=== PATIENT | male | born 1965 | race Caucasian/White ===

== ENCOUNTER 2017-08-07 19:12 | Inpatient (IN) | payer OTHER ==
[~2017-08-07] VITALS: Ht 167.6 cm; Wt 72.6 kg
[2017-08-07] VITALS (9 sets, daily range): BP systolic 144–181
[2017-08-07] MEDS ORDERED: MULT-1117 NG (21:04)
[2017-08-07] MEDS ORDERED: NICO1PAT25 TD (21:04)
[2017-08-07] MEDS ORDERED: ROCPM1 IV (21:04)
[2017-08-07] MEDS ORDERED: SIMV40TA2 NG (21:04)
[2017-08-07] MEDS ORDERED: QUET25TA34 NG (21:04)
[2017-08-07] MEDS ORDERED: ACET200V11 IV (21:04)
[2017-08-07] MEDS ORDERED: ALPR0.5T8 NG (21:04)
[2017-08-07] MEDS ORDERED: FOLI-43 PO (21:04)
[2017-08-07] MEDS ORDERED: ALBU2.5V7 INH (21:04)
[2017-08-07] MEDS ORDERED: THIA100T13 NG (21:04)
[2017-08-07] MEDS ORDERED: GLIP5TAB13 NG (21:04)
[2017-08-07] MEDS ORDERED: FAMO20TA98 PO (21:04)
[2017-08-07] MEDS ORDERED: NPH,100V SUBCUT (21:04)
[2017-08-07] MEDS ORDERED: TAMS-11 NG (21:04)
[2017-08-07] MEDS ORDERED: IPRA0.2S6 INH (21:04)
[2017-08-07] MEDS ORDERED: LOP600 PO (21:04)
[2017-08-07] MEDS ORDERED: SCOP1PAT TD (21:04)
[2017-08-07] MEDS ORDERED: ATEN-166 NG (21:04)
[2017-08-07] MEDS ORDERED: ALBUTEROL SULFATE 0.083% 2.5 MG/3 ML VIAL.NEB INH PRN (21:45)
[2017-08-07] MEDS ORDERED: IPRATROPIUM BROM 0.5 MG/2.5 ML VIAL.NEB (ATROVENT) INH PRN ×2 (21:45→22:45)
[2017-08-07] MEDS: ALPRAZolam 0.25 MG TABLET PO SCH (22:14)
[2017-08-07] MEDS ORDERED: ALBUTEROL SULFATE 0.083% 2.5 MG/3 ML VIAL.NEB INH SCH (22:45)
[2017-08-07] MEDS ORDERED: ACETYLCYSTEINE IV 6000 MG/30 ML VIAL IV SCH (22:45)
[2017-08-07] MEDS: TAMSULOSIN HCL 0.4 MG CAP NG SCH (22:45)
[2017-08-07] MEDS ORDERED: cefTRIAXone 1 GM IVPB PREMIX 50 ML IV SCH (23:00)
[2017-08-07] MEDS ORDERED: DEXTROSE 50% JECT 50 ML DISP.SYRIN IVP PRN (23:00)
[2017-08-07] MEDS ORDERED: cloNIDine HCL 0.2 MG TABLET PO PRN (23:15)
[2017-08-07] MEDS ORDERED: cefTRIAXone 1 GM IVPB PREMIX 100 ML IV ONE (23:22)
[2017-08-07] MEDS ORDERED: ACETAMINOPHEN 650 MG/20.3 ML UDC GT PRN (23:30)
[2017-08-07] MEDS: LORazepam 2 MG/ML VIAL IVP PRN (23:43)
[2017-08-08] VITALS (25 sets, daily range): BP systolic 126–170
[2017-08-08] MEDS: LORazepam 2 MG/ML VIAL IVP PRN ×2 (03:58→08:28)
[2017-08-08] MEDS: INSULIN REGULAR, HUMAN 100 UNITS/ML, 10 ML VIAL (novoLIN R) SUBCUT PRN ×3 (04:06→22:43)
[2017-08-08 05:47] LABS: BASOPHILS # (AUTO) 0.1 K/uL (0.0-0.2); BASOPHILS % (AUTO) 0.6 % (0.0-2.0); EOSINOPHILS # (AUTO) 0.4 K/uL (0.0-0.4); EOSINOPHILS % (AUTO) 2.5 % (0.0-4.0); HEMOGLOBIN 11.5 g/dL (14.0-18.0); LYMPHOCYTES # (AUTO) 2.8 K/uL (1.0-5.5); LYMPHOCYTES % (AUTO) 18.6 % (20.5-51.5); MEAN CORPUSCULAR HEMOGLOBIN 30 pg (27-31); MEAN CORPUSCULAR HGB CONC 33 % (32-36); MEAN CORPUSCULAR VOLUME 92 fL (79.0-98.0); MONOCYTES % (AUTO) 6.7 % (1.7-9.3); PLATELET COUNT (AUTO) 652 K/uL (130-430); RED BLOOD CELL COUNT(AUTO) 3.79 MIL/uL (4.2-6.2); RED CELL DISTRIBUTION WIDTH 12.4 % (9.0-15.0); WHITE BLOOD COUNT (AUTO) 15.3 K/uL (4.8-10.8)
[2017-08-08 06:24] LABS: ALBUMIN 2.8 g/dL (3.4-4.8); CALCIUM 9.5 mg/dL (8.4-11.0); CREATININE 0.72 mg/dL (0.55-1.30); POTASSIUM 3.3 mmol/L (3.5-5.1); THYROID STIMULATING HORMONE 1.42 uIu/mL (0.34-4.82); TOTAL BILIRUBIN 0.2 mg/dL (0.0-1.0)
[2017-08-08] MEDS: SIMVASTATIN 40 MG TABLET NG SCH (08:25)
[2017-08-08] MEDS: IPRATROPIUM BROM 0.5 MG/2.5 ML VIAL.NEB (ATROVENT) INH SCH ×3 (08:25→19:46)
[2017-08-08] MEDS: THIAMINE HCL 100 MG TABLET NG SCH (08:25)
[2017-08-08] MEDS: ALBUTEROL SULFATE 0.083% 2.5 MG/3 ML VIAL.NEB INH SCH ×4 (08:25→19:46)
[2017-08-08] MEDS: MULTIVITAMINS TAB 1 TABLET NG SCH (08:25)
[2017-08-08] MEDS: ATENOLOL 25 MG TABLET(TENORMIN) NG SCH (08:26)
[2017-08-08] MEDS: FAMOTIDINE 20 MG TABLET PO SCH ×2 (08:26→20:19)
[2017-08-08] MEDS: TAMSULOSIN HCL 0.4 MG CAP NG SCH (08:27)
[2017-08-08] MEDS: GEMFIBROZIL 600 MG TABLET (LOPID) PO SCH ×2 (08:27→20:19)
[2017-08-08] MEDS: ALPRAZolam 0.25 MG TABLET PO SCH (08:45)
[2017-08-08 08:50] LABS: NEUTROPHILS % (AUTO) 71.6 % (40.0-70.0)
[2017-08-08] MEDS: INSULIN NPH 100 UNITS/ML 10 ML VIAL SUBCUT SCH ×2 (08:51→20:21)
[2017-08-08] MEDS: NICOTINE 14 MG/24 HR PATCH.TD24 TD SCH (08:54)
[2017-08-08] MEDS ORDERED: FOLIC ACID 1 MG TABLET PO SCH (09:00)
[2017-08-08] MEDS ORDERED: LOSARTAN POTASSIUM 50 MG TABLET (COZAAR) PO SCH (09:00)
[2017-08-08] MEDS ORDERED: QUEtiapine FUMARATE 25 MG TABLET NG SCH ×2 (09:00)
[2017-08-08] MEDS ORDERED: POTASSIUM CHLORIDE 20 MEQ/PKT PACKET PO ONE (12:45)
[2017-08-08] MEDS ORDERED: traMADol HCL HCL 50 MG TABLET (ULTRAM) PO PRN (12:45)
[2017-08-08] MEDS: traMADol HCL HCL 50 MG TABLET (ULTRAM) PO PRN (13:20)
[2017-08-08] MEDS: D5LR 1,000 ML IV SCH (13:21)
[2017-08-08] MEDS: QUEtiapine FUMARATE 25 MG TABLET NG SCH ×2 (17:00→20:19)
[2017-08-08] MEDS ORDERED: POTASSIUM CHLORIDE 20 MEQ/PKT PACKET PO SCH (21:00)
[2017-08-08] MEDS ORDERED: FAMOTIDINE 20 MG TABLET PO SCH (21:00)
[2017-08-08] MEDS: metroNIDAZOLE 250 mg/NS 50 ML IV SCH (22:16)
[2017-08-08] MEDS: CEFTRIAXONE SOD 2 GM/ D5W 100 ML IV SCH ×2 (22:17)
[2017-08-09] VITALS (20 sets, daily range): BP systolic 105–166
[2017-08-09] MEDS: IPRATROPIUM BROM 0.5 MG/2.5 ML VIAL.NEB (ATROVENT) INH SCH ×4 (01:19→20:39)
[2017-08-09] MEDS: ALBUTEROL SULFATE 0.083% 2.5 MG/3 ML VIAL.NEB INH SCH ×4 (01:19→20:39)
[2017-08-09] MEDS: LORazepam 2 MG/ML VIAL IVP PRN ×2 (02:15→05:51)
[2017-08-09] MEDS: ALPRAZolam 0.25 MG TABLET PO SCH (02:43)
[2017-08-09] MEDS: traMADol HCL HCL 50 MG TABLET (ULTRAM) PO PRN (03:57)
[2017-08-09] MEDS: D5LR 1,000 ML IV SCH ×2 (04:40→07:50)
[2017-08-09] MEDS: metroNIDAZOLE 250 mg/NS 50 ML IV SCH ×3 (05:21→21:17)
[2017-08-09] MEDS: INSULIN REGULAR, HUMAN 100 UNITS/ML, 10 ML VIAL (novoLIN R) SUBCUT PRN (05:26)
[2017-08-09 05:55] LABS: ALBUMIN 2.8 g/dL (3.4-4.8); CALCIUM 9.2 mg/dL (8.4-11.0); CREATININE 0.73 mg/dL (0.55-1.30); POTASSIUM 3.8 mmol/L (3.5-5.1); TOTAL BILIRUBIN 0.3 mg/dL (0.0-1.0)
[2017-08-09 06:26] LABS: BASOPHILS # (AUTO) 0.2 K/uL (0.0-0.2); EOSINOPHILS # (AUTO) 0.6 K/uL (0.0-0.4); EOSINOPHILS % (AUTO) 3.3 % (0.0-4.0); HEMATOCRIT 33.4 % (36-54); HEMOGLOBIN 11.2 g/dL (14.0-18.0); LYMPHOCYTES # (AUTO) 3.2 K/uL (1.0-5.5); LYMPHOCYTES % (AUTO) 18.3 % (20.5-51.5); MEAN CORPUSCULAR HEMOGLOBIN 31 pg (27-31); MEAN CORPUSCULAR HGB CONC 33 % (32-36); MEAN CORPUSCULAR VOLUME 92 fL (79.0-98.0); MONOCYTES # (AUTO) 1.2 K/uL (0.0-1.0); MONOCYTES % (AUTO) 7.1 % (1.7-9.3); NEUTROPHILS # (AUTO) 12.2 K/uL (1.8-7.7); NEUTROPHILS % (AUTO) 70.3 % (40.0-70.0); PLATELET COUNT (AUTO) 631 K/uL (130-430); RED BLOOD CELL COUNT(AUTO) 3.65 MIL/uL (4.2-6.2); RED CELL DISTRIBUTION WIDTH 12.7 % (9.0-15.0); WHITE BLOOD COUNT (AUTO) 17.4 K/uL (4.8-10.8)
[2017-08-09] MEDS ORDERED: LORazepam 2 MG/ML VIAL IVP PRN (06:45)
[2017-08-09] MEDS ORDERED: NYSTATIN 500,000 UNITS/5 ML UDC PO ONE (07:30)
[2017-08-09] MEDS ORDERED: POTASSIUM CHLORIDE 20 MEQ/PKT PACKET NG SCH (07:38)
[2017-08-09] MEDS ORDERED: FOLIC ACID 1 MG TABLET NG SCH (07:40)
[2017-08-09] MEDS ORDERED: LOSARTAN POTASSIUM 50 MG TABLET (COZAAR) NG SCH (07:41)
[2017-08-09] MEDS ORDERED: cloNIDine HCL 0.2 MG TABLET NG PRN (07:41)
[2017-08-09] MEDS ORDERED: FAMOTIDINE 20 MG TABLET NG SCH (07:42)
[2017-08-09] MEDS ORDERED: GEMFIBROZIL 600 MG TABLET (LOPID) NG SCH (07:42)
[2017-08-09] MEDS ORDERED: traMADol HCL HCL 50 MG TABLET (ULTRAM) NG PRN ×2 (07:43→07:44)
[2017-08-09] MEDS ORDERED: ACETAMINOPHEN 650 MG/20.3 ML UDC NG PRN (07:43)
[2017-08-09] MEDS ORDERED: ALPRAZolam 0.25 MG TABLET NG SCH (07:45)
[2017-08-09] MEDS: QUEtiapine FUMARATE 25 MG TABLET NG SCH (08:30)
[2017-08-09] MEDS: POTASSIUM CHLORIDE 20 MEQ/PKT PACKET NG SCH ×2 (08:30→21:13)
[2017-08-09] MEDS: TAMSULOSIN HCL 0.4 MG CAP NG SCH (08:31)
[2017-08-09] MEDS: LOSARTAN POTASSIUM 50 MG TABLET (COZAAR) NG SCH (08:31)
[2017-08-09] MEDS: GEMFIBROZIL 600 MG TABLET (LOPID) NG SCH ×2 (08:31→21:13)
[2017-08-09] MEDS: FLUCONAZOLE 100 MG TABLET (DIFLUCAN) NG SCH (08:32)
[2017-08-09] MEDS: MULTIVITAMINS TAB 1 TABLET NG SCH (08:32)
[2017-08-09] MEDS: FOLIC ACID 1 MG TABLET NG SCH (08:32)
[2017-08-09] MEDS: SIMVASTATIN 40 MG TABLET NG SCH (08:32)
[2017-08-09] MEDS: FAMOTIDINE 20 MG TABLET NG SCH ×2 (08:32→21:13)
[2017-08-09] MEDS: THIAMINE HCL 100 MG TABLET NG SCH (08:33)
[2017-08-09] MEDS: ATENOLOL 25 MG TABLET(TENORMIN) NG SCH (08:33)
[2017-08-09] MEDS: INSULIN NPH 100 UNITS/ML 10 ML VIAL SUBCUT SCH ×2 (08:41→21:17)
[2017-08-09] MEDS: NICOTINE 14 MG/24 HR PATCH.TD24 TD SCH (08:41)
[2017-08-09] MEDS ORDERED: HALOPERIDOL LACTATE 5 MG/ML VIAL IVP ONE (09:30)
[2017-08-09] MEDS ORDERED: HALOPERIDOL 1 MG TABLET (HALDOL) PO SCH (09:30)
[2017-08-09] MEDS ORDERED: HALOPERIDOL LACTATE 5 MG/ML VIAL IVP PRN (12:15)
[2017-08-09] MEDS ORDERED: cloNIDine HCL 0.2 MG TABLET PO PRN (12:15)
[2017-08-09] MEDS ORDERED: QUEtiapine FUMARATE 100 MG TABLET NG SCH (15:00)
[2017-08-09] MEDS: CEFTRIAXONE SOD 2 GM/ D5W 100 ML IV SCH ×2 (23:52)
[2017-08-10] MEDS: QUEtiapine FUMARATE 100 MG TABLET PO SCH ×5 (00:08→23:30)
[2017-08-10 00:39] VITALS: BP_SYST 137
[2017-08-10] MEDS: ALBUTEROL SULFATE 0.083% 2.5 MG/3 ML VIAL.NEB INH SCH ×4 (01:04→20:20)
[2017-08-10] MEDS: IPRATROPIUM BROM 0.5 MG/2.5 ML VIAL.NEB (ATROVENT) INH SCH ×4 (01:05→20:20)
[2017-08-10] MEDS: metroNIDAZOLE 250 mg/NS 50 ML IV SCH (05:16)
[2017-08-10 06:34] LABS: CALCIUM 9.3 mg/dL (8.4-11.0); CREATININE 0.77 mg/dL (0.55-1.30); POTASSIUM 3.9 mmol/L (3.5-5.1); TOTAL BILIRUBIN 0.2 mg/dL (0.0-1.0)
[2017-08-10 06:53] LABS: BASOPHILS # (AUTO) 0.3 K/uL (0.0-0.2); BASOPHILS % (AUTO) 1.9 % (0.0-2.0); EOSINOPHILS # (AUTO) 0.5 K/uL (0.0-0.4); EOSINOPHILS % (AUTO) 3.4 % (0.0-4.0); HEMATOCRIT 33.4 % (36-54); HEMOGLOBIN 11.5 g/dL (14.0-18.0); LYMPHOCYTES # (AUTO) 2.8 K/uL (1.0-5.5); LYMPHOCYTES % (AUTO) 19.9 % (20.5-51.5); MEAN CORPUSCULAR HEMOGLOBIN 32 pg (27-31); MEAN CORPUSCULAR HGB CONC 34 % (32-36); MEAN CORPUSCULAR VOLUME 92 fL (79.0-98.0); MONOCYTES # (AUTO) 0.7 K/uL (0.0-1.0); MONOCYTES % (AUTO) 5.2 % (1.7-9.3); NEUTROPHILS # (AUTO) 9.7 K/uL (1.8-7.7); NEUTROPHILS % (AUTO) 69.6 % (40.0-70.0); PLATELET COUNT (AUTO) 632 K/uL (130-430); RED BLOOD CELL COUNT(AUTO) 3.64 MIL/uL (4.2-6.2); RED CELL DISTRIBUTION WIDTH 12.8 % (9.0-15.0)
[2017-08-10 08:30] VITALS: BP_SYST 112
[2017-08-10] MEDS: SIMVASTATIN 40 MG TABLET NG SCH (09:25)
[2017-08-10] MEDS: TAMSULOSIN HCL 0.4 MG CAP NG SCH (09:25)
[2017-08-10] MEDS: MULTIVITAMINS TAB 1 TABLET NG SCH (09:25)
[2017-08-10] MEDS: NICOTINE 14 MG/24 HR PATCH.TD24 TD SCH (09:25)
[2017-08-10] MEDS: FOLIC ACID 1 MG TABLET NG SCH (09:25)
[2017-08-10] MEDS: POTASSIUM CHLORIDE 20 MEQ/PKT PACKET NG SCH ×2 (09:25→21:00)
[2017-08-10] MEDS: FAMOTIDINE 20 MG TABLET NG SCH ×2 (09:25→21:00)
[2017-08-10] MEDS: GEMFIBROZIL 600 MG TABLET (LOPID) NG SCH ×2 (09:26→21:00)
[2017-08-10] MEDS: LOSARTAN POTASSIUM 50 MG TABLET (COZAAR) NG SCH (09:26)
[2017-08-10] MEDS: ATENOLOL 25 MG TABLET(TENORMIN) NG SCH (09:26)
[2017-08-10] MEDS: THIAMINE HCL 100 MG TABLET NG SCH (09:27)
[2017-08-10] MEDS: INSULIN NPH 100 UNITS/ML 10 ML VIAL SUBCUT SCH ×2 (09:28→21:56)
[2017-08-10] MEDS: FLUCONAZOLE 100 MG TABLET (DIFLUCAN) NG SCH (09:33)
[2017-08-10 11:34] VITALS: BP_SYST 155
[2017-08-10] MEDS ORDERED: *TOBRAMYCIN PER PHARMACY XX PRN (12:00)
[2017-08-10] MEDS: INSULIN REGULAR, HUMAN 100 UNITS/ML, 10 ML VIAL (novoLIN R) SUBCUT PRN ×2 (12:12→17:30)
[2017-08-10 15:15] VITALS: BP_SYST 130
[2017-08-10] MEDS: NS IV SCH (16:47)
[2017-08-10] MEDS: TOBRAMYCIN SULFATE IV SCH (16:47)
[2017-08-10 17:36] VITALS: BP_SYST 130
[2017-08-10 20:00] VITALS: BP_SYST 148
[2017-08-10] MEDS: D5LR 1,000 ML IV SCH (21:47)
[2017-08-10] MEDS: CEFTRIAXONE SOD 2 GM/ D5W 100 ML IV SCH ×2 (22:12)
[2017-08-11 00:06] VITALS: BP_SYST 135
[2017-08-11] MEDS: IPRATROPIUM BROM 0.5 MG/2.5 ML VIAL.NEB (ATROVENT) INH SCH ×4 (00:31→20:04)
[2017-08-11] MEDS: ALBUTEROL SULFATE 0.083% 2.5 MG/3 ML VIAL.NEB INH SCH ×4 (00:31→20:03)
[2017-08-11] MEDS: D5LR 1,000 ML IV SCH ×2 (05:30→09:24)
[2017-08-11] MEDS: QUEtiapine FUMARATE 100 MG TABLET PO SCH ×3 (05:30→17:19)
[2017-08-11 06:14] LABS: BASOPHILS # (AUTO) 0.2 K/uL (0.0-0.2); EOSINOPHILS # (AUTO) 0.4 K/uL (0.0-0.4); EOSINOPHILS % (AUTO) 2.2 % (0.0-4.0); HEMATOCRIT 36.2 % (36-54); HEMOGLOBIN 12.2 g/dL (14.0-18.0); LYMPHOCYTES # (AUTO) 3.9 K/uL (1.0-5.5); LYMPHOCYTES % (AUTO) 20.6 % (20.5-51.5); MEAN CORPUSCULAR HEMOGLOBIN 31 pg (27-31); MEAN CORPUSCULAR HGB CONC 34 % (32-36); MEAN CORPUSCULAR VOLUME 92 fL (79.0-98.0); MONOCYTES # (AUTO) 0.4 K/uL (0.0-1.0); MONOCYTES % (AUTO) 2.1 % (1.7-9.3); NEUTROPHILS # (AUTO) 13.8 K/uL (1.8-7.7); NEUTROPHILS % (AUTO) 74.1 % (40.0-70.0); PLATELET COUNT (AUTO) 676 K/uL (130-430); RED BLOOD CELL COUNT(AUTO) 3.93 MIL/uL (4.2-6.2); RED CELL DISTRIBUTION WIDTH 12.4 % (9.0-15.0); WHITE BLOOD COUNT (AUTO) 18.7 K/uL (4.8-10.8)
[2017-08-11 06:31] LABS: CALCIUM 9.5 mg/dL (8.4-11.0); CREATININE 0.78 mg/dL (0.55-1.30); POTASSIUM 4.1 mmol/L (3.5-5.1)
[2017-08-11 08:00] VITALS: BP_SYST 124
[2017-08-11] MEDS: LOSARTAN POTASSIUM 50 MG TABLET (COZAAR) NG SCH (08:50)
[2017-08-11] MEDS: POTASSIUM CHLORIDE 20 MEQ/PKT PACKET NG SCH ×2 (08:51→21:00)
[2017-08-11] MEDS: FLUCONAZOLE 100 MG TABLET (DIFLUCAN) NG SCH (08:51)
[2017-08-11] MEDS: FOLIC ACID 1 MG TABLET NG SCH (08:51)
[2017-08-11] MEDS: TAMSULOSIN HCL 0.4 MG CAP NG SCH (08:51)
[2017-08-11] MEDS: ATENOLOL 25 MG TABLET(TENORMIN) NG SCH (08:52)
[2017-08-11] MEDS: MULTIVITAMINS TAB 1 TABLET NG SCH (08:52)
[2017-08-11] MEDS: THIAMINE HCL 100 MG TABLET NG SCH (08:52)
[2017-08-11] MEDS: FAMOTIDINE 20 MG TABLET NG SCH ×2 (08:52→21:00)
[2017-08-11] MEDS: GEMFIBROZIL 600 MG TABLET (LOPID) NG SCH ×2 (08:52→21:00)
[2017-08-11] MEDS: SIMVASTATIN 40 MG TABLET NG SCH (08:53)
[2017-08-11] MEDS: NICOTINE 14 MG/24 HR PATCH.TD24 TD SCH (08:57)
[2017-08-11] MEDS: INSULIN NPH 100 UNITS/ML 10 ML VIAL SUBCUT SCH ×2 (08:59→21:20)
[2017-08-11 11:44] VITALS: BP_SYST 126; BP_SYST 135
[2017-08-11] MEDS ORDERED: KETOROLAC TROMETHAMINE 15 MG VIAL IVP PRN (12:00)
[2017-08-11] MEDS: NS IV SCH (14:28)
[2017-08-11] MEDS: TOBRAMYCIN SULFATE IV SCH (14:28)
[2017-08-11 17:20] VITALS: BP_SYST 140
[2017-08-11] MEDS ORDERED: AMPICILLIN SODIUM/SULBACTAM NA 1.5 GM in NS 50 ML IV SCH (18:00)
[2017-08-11 18:21] VITALS: BP_SYST 121
[2017-08-11 20:00] VITALS: BP_SYST 153
== END 2017-08-11 22:30 | DRG 208 ==
LOC: SIC 20:03 → STU 08-09 19:22
PROVIDERS: ADMIT Internal Medicine; ATTEND Internal Medicine
PROC: 5A1935Z Respiratory Ventilation, Less than 24 Consecutive Hours (ICD-10-PCS; principal; 2017-08-07)
DX: J15.6 Pneumonia due to other Gram-negative bacteria (principal); J96.20 Acute and chronic respiratory failure, unspecified whether with hypoxia or hypercapnia; G92 Toxic encephalopathy; Z93.0 Tracheostomy status; R13.10 Dysphagia, unspecified; J44.0 Chronic obstructive pulmonary disease with (acute) lower respiratory infection; F23 Brief psychotic disorder; J38.4 Edema of larynx; B18.2 Chronic viral hepatitis C; F10.20 Alcohol dependence, uncomplicated; E11.9 Type 2 diabetes mellitus without complications; E78.5 Hyperlipidemia, unspecified; D72.829 Elevated white blood cell count, unspecified; F17.210 Nicotine dependence, cigarettes, uncomplicated; I10 Essential (primary) hypertension; Z79.899 Other long term (current) drug therapy
CPT/HCPCS: 36415; 36600; 71045; 80048; 80053; 80061; 82803-TC; 82962; 83036; 83735-TC; 84443-TC; 85025; 87040-TC; 87070-TC; 87081; 87186-TC; 87205-TC; 94002; 94003; 94640; 94760; 97110-GP; J0295; J0696; J1630; J1815; J2060; J3260; J3490; J7060; J7120; J7613